=== PATIENT | male | born 1940 | race Caucasian/White ===

== ENCOUNTER 2021-03-14 07:47 | Day surgery (SDC) | payer MEDICARE ==
[2021-03-07 16:57] LABS: BASOPHILS % (AUTO) 0.6 % (0-1); EOSINOPHILS # (AUTO) 0.2 X10'3 (0-0.9); EOSINOPHILS % (AUTO) 2.4 % (0-6); LYMPHOCYTES # (AUTO) 1.4 X10'3 (1.1-4.8); LYMPHOCYTES % (AUTO) 20.4 % (21-51); MEAN CORPUSCULAR HEMOGLOBIN 32.1 PG (27.0-31.0); MEAN CORPUSCULAR HGB CONC 34.4 g/dL (33.0-36.5); MEAN CORPUSCULAR VOLUME 93.3 FL (78-98); MEAN PLATELET VOLUME 7.2 FL (7.4-10.4); MONOCYTES # (AUTO) 0.8 X10'3 (0-0.9); MONOCYTES % (AUTO) 11.5 % (2-12); NEUTROPHILS # (AUTO) 4.6 X10'3 (1.8-7.7); NEUTROPHILS % (AUTO) 65.1 % (42-75); PRE OP PLATELET COUNT 242 X10'3 (140-440); RED BLOOD COUNT 3.75 X10'6 (4.70-6.10); RED CELL DISTRIBUTION WIDTH 15.8 % (11.5-14.5)
[2021-03-07 17:04] LABS: ALBUMIN 3.5 G/DL (3.4-5.0); ALBUMIN/GLOBULIN RATIO 0.8 (1.1-1.5); ALKALINE PHOSPHATASE 86 IU/L (46-116); BLOOD UREA NITROGEN 13 MG/DL (7-18); BUN/CREATININE RATIO 16.3 (5.4-32.0); CALCIUM 9.3 MG/DL (8.5-10.1); CHLORIDE 102 MMOL/L (99-107); PRE OP ALT 31 U/L (30-65); PRE OP ANION GAP 6 (8-16); PRE OP AST 19 U/L (10-37); PRE OP BILIRUB, TOTAL 0.6 MG/DL (0.0-1.0); PRE OP GLUCOSE 88 MG/DL (70-104); PRE OP SODIUM 140 MMOL/L (135-145); TOTAL PROTEIN 8.1 G/DL (6.4-8.2); eGFR > 90 ML/MIN
[~2021-03-14] VITALS: Ht 167.6 cm; Wt 70.1 kg
[2021-03-14] VITALS (15 sets, daily range): BP systolic 83–166; BP diastolic 39–76
[~2021-03-14 07:47] MED LIST: ASPI-1397 PO; CALC-1073 PO; DOCUMENT DATE & TIME OF BETA-BLOCKER PO ONE; FERR-106 PO; HYDROcodone/acetaminophen 10/325mg tab PO PRN; HYDROmorphone 1 mg/ml syringe IV PRN; HYDROmorphone inj. 0.5 MG/0.5 ML DISP.SYRIN IV PRN; IBUP-1984 PO; METO-384 PO; NIA500ERT PO; NITR0.4T48; OMEG-79 PO; OMEP20TA5 PO; SIMV-42 PO; VANCOMYCIN INJ 1000 MG in NORMAL SALINE 250ml IV.SOLN IV ONE; VITAMIN D3 PO; VITC500T PO; acetaminophen 325mg tablet PO ONE; acetaminophen 325mg tablet PO PRN; bisacodyl 10mg suppository rectal RC PRN; cefazolin/dext.iso 2gm/50ml IV ONE; celeCOXIB 100mg capsule PO ONE; diphenhydrAMINE 25mg capsule PO PRN; famotidine 20mg tablet PO ONE; gabapentin 300mg capsule PO ONE; magnesium hydroxide 30ml (MOM) UD suspension PO PRN; metoclopramide 5 mg/ml inj IV ONE; ondansetron/PF 4mg/2ml inj IV PRN; oxyCODONE SR 10mg (sust. release) tab -2 tabs (20mg) PO ONE; potassium cl 20mEq in 1/2 NS 1,000 ML IV SCH; tranexamic acid inj. 1,000 MG in 0.7% saline 100 ML PMX IV ONE
[2021-03-14] MEDS ORDERED: vancomycin/NS 1 GM ADD-VANTAGE 250 ML IV SCH ×2 (08:00→20:00)
[2021-03-14] MEDS ORDERED: HYDROcodone/acetaminophen 10/325mg tab PO PRN ×2 (08:00)
[2021-03-14] MEDS ORDERED: non-formulary drug (Metoprolol Succinate 1 TAB) PO SCH (08:00)
[2021-03-14] MEDS ORDERED: ascorbic acid 500mg tablet PO SCH (08:00)
[2021-03-14] MEDS ORDERED: ondansetron/PF 4mg/2ml inj IV PRN ×2 (08:00→10:45)
[2021-03-14] MEDS ORDERED: magnesium hydroxide 30ml (MOM) UD suspension PO PRN (08:00)
[2021-03-14] MEDS ORDERED: HYDROmorphone inj. 0.5 MG/0.5 ML DISP.SYRIN IV PRN (08:00)
[2021-03-14] MEDS ORDERED: OMEPRAZOLE PO SCH (08:00)
[2021-03-14] MEDS ORDERED: HYDROmorphone 1 mg/ml syringe IV PRN (08:00)
[2021-03-14] MEDS ORDERED: niacin 500mg ER (Niaspan) tablet PO SCH (08:00)
[2021-03-14] MEDS ORDERED: gabapentin 300mg capsule PO SCH (08:00)
[2021-03-14] MEDS ORDERED: bisacodyl 10mg suppository rectal RC PRN (08:00)
[2021-03-14] MEDS ORDERED: diphenhydrAMINE 25mg capsule PO PRN ×2 (08:00)
[2021-03-14] MEDS: potassium cl 20mEq in 1/2 NS 1,000 ML IV SCH ×2 (08:00→16:59)
[2021-03-14] MEDS ORDERED: acetaminophen 325mg tablet PO PRN (08:00)
[2021-03-14] MEDS ORDERED: aspirin 325mg tablet PO SCH (08:30)
[2021-03-14] MEDS: ringers solution, lacted 1,000 ML IV SCH ×2 (09:33→14:43)
[2021-03-14] MEDS ORDERED: ketorolac trometh. 30mg/ml inj. ONE (09:44)
[2021-03-14] MEDS ORDERED: epiNEPHrine 1 mg/ml inj ONE (09:44)
[2021-03-14] MEDS ORDERED: cloNIDine hcl/PF 100mcg/ml inj ONE (09:44)
[2021-03-14] MEDS ORDERED: vancomycin 1,000mg inj ONE (09:44)
[2021-03-14] MEDS ORDERED: ROPIVAcaine 0.5% (5mg/ml) 30ml vial ONE (09:44)
[2021-03-14] MEDS ORDERED: fentaNYL/PF 50MCG/1 ML 2ML syringe ONE (10:00)
[2021-03-14] MEDS ORDERED: MIDAZolam 1 MG/ML 5ML VIAL ONE (10:01)
[2021-03-14] MEDS ORDERED: morphine 2 MG/ML inj. syringe IV PRN (10:45)
[2021-03-14] MEDS ORDERED: ringers solution, lacted 1,000 ML IV SCH (10:45)
[2021-03-14] MEDS ORDERED: meperidine/PF 25mg/ml syringe IV PRN ×3 (10:45)
[2021-03-14] MEDS ORDERED: proCHLORperazine 10 MG/2 ml inj IV PRN (10:45)
[2021-03-14] MEDS ORDERED: morphine 4 MG/ML inj SYRINge IV PRN (10:45)
--- NOTE | 2021-03-14 11:05 | NUR ---
Received from OR via BED , accompanied by Anesthesiologist Cyndie and report given by Anesthesiolgist. RT HIP DSG WITH PACO, CDI. FEET WARM, NOT MOVING LEGS YET. NO PAIN. SCDS PRESENT. IV RT AC, SITE CLEAR.
--- NOTE | 2021-03-14 11:40 | NUR ---
REPORT PHONED TO FLOOR. HOB ELEVATED WITH NO CHANGE IN BP.
[2021-03-14] MEDS ORDERED: tranexamic acid inj. 700 MG in normal saline 100ml IV soln 100 ML IV ONE (15:00)
[2021-03-14] MEDS ORDERED: cefazolin/dext.iso 2gm/100ml 100 ML IV SCH (16:00)
[2021-03-14] MEDS: cefazolin/dext.iso 2gm/50ml 50 ML IV SCH (16:55)
[2021-03-14] MEDS: metoprolol succinate 25mg (24-HOUR) SR. Tablet PO SCH (16:56)
[2021-03-14] MEDS: aspirin 325mg tablet PO SCH (16:56)
[2021-03-14] MEDS: pantoprazole 40mg Tablet.DR PO SCH (16:56)
[2021-03-14] MEDS: niacin 500mg ER (Niaspan) tablet PO SCH (16:57)
--- NOTE | 2021-03-14 18:22 | NUR ---
Report given to Dany HILL
[2021-03-14] MEDS: ascorbic acid 500mg tablet PO SCH (20:04)
[2021-03-14] MEDS ORDERED: non-formulary drug (Simvastatin* (Zocor*) 1 TAB) PO SCH (21:00)
[2021-03-14] MEDS ORDERED: sennosides 8.6mg tablet PO SCH ×2 (21:00)
[2021-03-14] MEDS: gabapentin 300mg capsule PO SCH (21:43)
[2021-03-15] VITALS: BP 123/60
[2021-03-15] MEDS: potassium cl 20mEq in 1/2 NS 1,000 ML IV SCH ×2 (00:13→11:13)
[2021-03-15] MEDS: cefazolin/dext.iso 2gm/50ml 50 ML IV SCH (00:14)
[2021-03-15 04:00] VITALS: BP 111/55
--- NOTE | 2021-03-15 06:20 | NUR ---
Patient in room [facility]. I have received report from Dany HILL and had the opportunity to ask questions and assume patient care.
[2021-03-15 06:40] LABS: BASOPHILS % (AUTO) 0.4 % (0-1); EOSINOPHILS # (AUTO) 0.1 X10'3 (0-0.9); HEMATOCRIT 30.9 % (42.0-52.0); HEMOGLOBIN 10.6 g/dl (14.0-17.9); LYMPHOCYTES # (AUTO) 1.1 X10'3 (1.1-4.8); LYMPHOCYTES % (AUTO) 10.4 % (21-51); MEAN CORPUSCULAR HEMOGLOBIN 32.3 PG (27.0-31.0); MEAN CORPUSCULAR HGB CONC 34.5 g/dL (33.0-36.5); MEAN CORPUSCULAR VOLUME 93.8 FL (78-98); MEAN PLATELET VOLUME 7.3 FL (7.4-10.4); MONOCYTES # (AUTO) 1.4 X10'3 (0-0.9); NEUTROPHILS # (AUTO) 7.5 X10'3 (1.8-7.7); NEUTROPHILS % (AUTO) 74.2 % (42-75); PLATELET COUNT 174 X10'3 (140-440); RED BLOOD COUNT 3.29 X10'6 (4.70-6.10); RED CELL DISTRIBUTION WIDTH 16.2 % (11.5-14.5); WHITE BLOOD COUNT 10.1 X10'3 (4.5-11.0)
[2021-03-15 06:57] LABS: ANION GAP 6 (8-16); CHLORIDE 101 MMOL/L (99-107); POTASSIUM 4.6 MMOL/L (3.5-5.1); SODIUM 134 MMOL/L (135-145); TOTAL CARBON DIOXIDE 26.7 MMOL/L (24-32)
[2021-03-15 07:19] VITALS: BP 133/64
[2021-03-15] MEDS: metoprolol succinate 25mg (24-HOUR) SR. Tablet PO SCH ×2 (08:00→09:15)
[2021-03-15] MEDS: niacin 500mg ER (Niaspan) tablet PO SCH (08:00)
[2021-03-15] MEDS ORDERED: atorvastatin 10mg tablet PO SCH (08:00)
[2021-03-15] MEDS: aspirin 325mg tablet PO SCH (09:16)
[2021-03-15] MEDS: ascorbic acid 500mg tablet PO SCH (09:17)
[2021-03-15] MEDS: gabapentin 300mg capsule PO SCH ×2 (09:20→13:41)
[2021-03-15] MEDS: pantoprazole 40mg Tablet.DR PO SCH (09:20)
--- NOTE | 2021-03-15 15:46 | NUR ---
Patient VSS. Discharge instructions reviewed with patient and family at bedside. IV removed, catheter tip intact. Patient dressed with family and NA assistance. Eyeglasses with patient. Hip immobilizer sent with patient. Patient taken town by wheelchair by family and NA.
[2021-03-15] MEDS ORDERED: celeCOXIB 100mg capsule PO SCH ×4 (20:00)
== END 2021-03-15 15:02 | disposition home or self-care (01) ==
LOC: PAS 07:47 → SUR 3N 07:48 → UNDOADMIN 07:48 → PAS IN 07:51 → UNDOADMIN 07:51 → EDSTATUS 11:45 → SUR 3N 03-15 06:57 → PAS 03-15 15:02
PROVIDERS: ATTEND Orthopaedic Surgery
DX: M16.11 Unilateral primary osteoarthritis, right hip (principal); M17.11 Unilateral primary osteoarthritis, right knee; I25.10 Atherosclerotic heart disease of native coronary artery without angina pectoris; I25.2 Old myocardial infarction; K21.9 Gastro-esophageal reflux disease without esophagitis; Z20.822 Contact with and (suspected) exposure to COVID-19; Z87.891 Personal history of nicotine dependence; Z72.89 Other problems related to lifestyle; Z79.899 Other long term (current) drug therapy; Z79.82 Long term (current) use of aspirin; Z98.890 Other specified postprocedural states; Z95.1 Presence of aortocoronary bypass graft; Z98.49 Cataract extraction status, unspecified eye; Z85.828 Personal history of other malignant neoplasm of skin; Z91.09 Other allergy status, other than to drugs and biological substances; Z80.1 Family history of malignant neoplasm of trachea, bronchus and lung
CPT/HCPCS: 27130; 36415; 72170; 80051; 80053; 82948; 85025; 86885; 86900; 86901; 87081; 97110; 97116; 97161; 97530; C1776; J0171; J0735; J1885; J2250; J2765; J3010; J3370; J7120; U0003; U0005; Z7506; Z7508; A7000; G0378; J0690; J2795; J3480; J3490